=== PATIENT | female | born 1965 | race Caucasian/White ===

== ENCOUNTER → 2017-10-20 | Outpatient (CLI) | payer OTHER ==
[~2017-10-20] MED LIST: HYDR12.58 PO; LISI-167 PO
[2017-10-20 15:38] LABS: CHLORIDE 105 mmol/L (98-107)
[2017-10-20 15:43] LABS: ALANINE AMINOTRANSFERASE 23 U/L (12-78); ALBUMIN 3.8 g/dL (3.4-5.0); ALKALINE PHOSPHATASE 107 U/L (45-117); ANION GAP 9 mmol/L (5-15); BILIRUBIN,TOTAL 0.6 mg/dL (0.2-1.0); CALCIUM 9.5 mg/dL (8.5-10.1); CREATININE 1.09 mg/dL (0.55-1.02); TOTAL PROTEIN 7.8 g/dL (6.4-8.2)
== END | disposition home or self-care (01) ==
LOC: STAR 14:32
PROVIDERS: ATTEND Otolaryngology
DX: Z01.818 Encounter for other preprocedural examination (principal); J34.2 Deviated nasal septum; J34.3 Hypertrophy of nasal turbinates; J34.9 Unspecified disorder of nose and nasal sinuses
CPT/HCPCS: 36415; 80053

== ENCOUNTER 2017-10-27 09:52 | Day surgery (SDC) | payer OTHER ==
[~2017-10-27] VITALS: Ht 162.6 cm; Wt 80.0 kg
[~2017-10-27 09:52] MED LIST changes: +BACITRACIN OINT 500U/GM, 15 GM ONE; +COCAINE TOPICAL SOLN 4%, 4ML ONE; +EPINEPHRINE 1 MG/ML, 1ML ONE; +LIDOCAINE/PF 1%, 30ML ONE; +OXYMETAZOLINE NASAL SPRAY 0.05%, 15ML ONE; +THROMBIN 5,000 UNIT VIAL TP ONE
[2017-10-27] MEDS ORDERED: LACTATED RINGERS 1,000 ML IV SCH (10:14)
[2017-10-27 10:24] VITALS: BP 143/87
[2017-10-27] MEDS ORDERED: GABAPENTIN 300 MG CAPSULE PO ONE (10:30)
[2017-10-27] MEDS ORDERED: ONDANSETRON ODT 8 MG PO ONE (10:30)
[2017-10-27] MEDS ORDERED: ACETAMINOPHEN 500 MG TABLET PO ONE (10:30)
[2017-10-27] MEDS ORDERED: LIDOCAINE-MPF 1%, 2ML ONE (10:37)
[2017-10-27] MEDS ORDERED: LIDOCAINE-MPF 1%, 2ML INFIL ONE (11:00)
[2017-10-27 11:13] LABS: HCG UR SG 1.024 (1.003-1.030)
[2017-10-27] MEDS ORDERED: MIDAZOLAM 1 MG/ML, 2ML ONE (11:28)
[2017-10-27] MEDS ORDERED: FENTANYL PF 100 MCG/2ML ONE ×2 (11:28→12:55)
[2017-10-27] MEDS ORDERED: LIDOCAINE GEL 2%, 5ML ONE (11:31)
[2017-10-27] MEDS ORDERED: MIDAZOLAM 1 MG/ML, 2ML IV PRN (12:30)
[2017-10-27] MEDS ORDERED: EPHEDRINE 50 MG/ML, 1ML IM PRN (12:30)
[2017-10-27] MEDS ORDERED: PROMETHAZINE 25 MG/ML, 1ML IV PRN (12:30)
[2017-10-27] MEDS ORDERED: PROMETHAZINE 25 MG/ML, 1ML IM PRN (12:30)
[2017-10-27] MEDS ORDERED: DIPHENHYDRAMINE 50 MG/ML, 1ML IVPush PRN (12:30)
[2017-10-27] MEDS ORDERED: MEPERIDINE/PF 25MG/0.5ML IVPush PRN (12:30)
[2017-10-27] MEDS ORDERED: MORPHINE SULFATE 4 MG/ML, 1ML IVPush PRN (12:30)
[2017-10-27] MEDS ORDERED: hydrALAzine 20 MG/ML, 1ML IV PRN (12:30)
[2017-10-27] MEDS ORDERED: OXYcodone 5 MG/5 ML ORAL.SOL UDC PO PRN (12:30)
[2017-10-27] MEDS ORDERED: SCOPOLAMINE PATCH, 1.5MG PATCH.TD72 TD PRN (12:30)
[2017-10-27] MEDS ORDERED: ALBUTEROL/IPRATROPIUM 2.5MG/0.5MG, 3 ML NPPB PRN (12:30)
[2017-10-27] MEDS ORDERED: FENTANYL PF 100 MCG/2ML IV PRN (12:30)
[2017-10-27] MEDS ORDERED: LABETALOL 5MG/ML, 20ML IV PRN (12:30)
[2017-10-27] MEDS ORDERED: PROPOFOL 10 MG/ML, 20ML ONE (12:45)
[2017-10-27] MEDS ORDERED: DEXAMETHASONE 4 MG/ML, 1ML ONE (12:45)
[2017-10-27] MEDS ORDERED: CEFAZOLIN 1,000 MG ONE (12:45)
[2017-10-27] MEDS ORDERED: SUCCINYLCHOLINE 20 MG/ML, 10ML ONE (12:45)
[2017-10-27] MEDS ORDERED: OXYcodone 5 MG/5 ML ORAL.SOL UDC ONE (13:02)
== END 2017-10-27 15:50 ==
LOC: OUT 09:52
PROVIDERS: ATTEND Otolaryngology
DX: J34.2 Deviated nasal septum (principal); J34.3 Hypertrophy of nasal turbinates; J34.89 Other specified disorders of nose and nasal sinuses; I10 Essential (primary) hypertension; Z88.5 Allergy status to narcotic agent
CPT/HCPCS: 30520; 81025; J0171; J0330; J0690; J1100; J2250; J2704; J3010; J3490; J7120; Q0162